=== PATIENT | female | born 1955 | race African-American/Black ===

== ENCOUNTER 2021-08-28 09:27 | Emergency (ER) | payer MEDICARE, SELFPAY ==
--- NOTE | ~2021-08-28 | XR_ITS ---
EXAMINATION: XR shoulder RT min 2V DATE: 08/28/2021 10:51 INDICATION: Right shoulder pain. TECHNIQUE: 4 views of right shoulder were obtained. COMPARISON: None. FINDINGS: Bone alignment is normal. No fracture. There is moderate osteoarthritis of glenohumeral cheryle nt. There is mild acromioclavicular joint osteoarthritis. IMPRESSION: 1. Polyarticular osteoarthritis. Reviewed, dictated and finalized at location A.
--- NOTE | ~2021-08-28 | US_ITS ---
EXAMINATION: US soft tissue UE RT DATE: 08/28/2021 10:51 INDICATION: Right upper arm mass. TECHNIQUE: Multiple grayscale and Doppler ultrasound images of the right upper arm were obtained. COMPARISON: Right shoulder radiographs 08/28/2021 FINDINGS: There is no abnormal mass in the patient's area of concern in right upper arm. IMPRESSION: 1. No abnormal mass in the patient's area of concern in right upper arm. Reviewed, dictated and finalized at location A.
[2021-08-28 09:43] VITALS: BP 153/88; PULSE 86; RESP 18; TEMP 36.6; O2SAT 100
--- NOTE | 2021-08-28 10:25 | ED.SKABFB ---
HPI - Skin/Abscess/Foreign Bdy General Chief complaint: Skin/Abscess/Foreign Body Stated complaint: arm pain Time Seen by Provider: 08/28/21 10:06 Source: patient Mode of arrival: ambulatory Limitations: no limitations History of Present Illness HPI narrative: This is a 65-year-old female that presents to the emergency department for right shoulder pain. Ongoing over the last month. No recent injuries or trauma. The pain is worse with movement and relieved with rest. She has been taking Tylenol with little relief. She also reports a mass on her right upper arm. This has been present for about a year now. She was supposed to follow-up with the surgeon, but missed her appointment. Denies fever, erythema, edema, numbness or weakness. Related Data Allergies Allergy/AdvReac Type Severity Reaction Status Date / Time codeine Allergy Mild FAINTING Verified 08/28/21 09:51 Review of Systems Review of Systems: CONSTITUTIONAL: Denies fever SKIN: Denies rash MUSCULOSKELETAL: Reports joint pain, and myalgia. NEUROLOGIC: Denies numbness, or weakness. All systems reviewed & are unremarkable except as noted in HPI and below PMFSH Past Medical History Medical History (Updated 08/28/21 @ 12:00 by Tamia Bermudez PA-C) History of depression History of hyperlipidemia History of hypertension Social History Social History (Updated 08/28/21 @ 10:27 by Tamia Bermudez PA-C) Substance use: never Exam Narrative: GENERAL: Well-appearing, well-nourished, and in no acute distress. HEAD: Normocephalic, atraumatic. EYES: EOMI. CHEST: Clear to auscultation. No respiratory distress. No wheezes rales or rhonchi HEART: Regular rate and rhythm. No murmur heard. Normal peripheral pulses. EXTREMITIES: Normal range of motion. No edema, erythema or warmth. 5cm soft tissue mass of the right upper arm that feels like a possible lipoma. Normal radial pulses. Normal sensation SKIN: Warm, dry, no rash. NEURO: No focal deficits. Alert and oriented x3. PSYCH: Normal mood and affect Course Vital Signs Vital signs: Vital Signs Temperature 97.8 F 08/28/21 09:43 Pulse Rate 86 08/28/21 09:43 Respiratory Rate 18 08/28/21 09:43 Blood Pressure 153/88 H 08/28/21 09:43 Pulse Oximetry 100 08/28/21 09:43 Temperature 97.8 F 08/28/21 09:43 Pulse Rate 86 08/28/21 09:43 Respiratory Rate 18 08/28/21 09:43 Blood Pressure 153/88 H 08/28/21 09:43 Pulse Oximetry 100 08/28/21 09:43 MDM - Skin/Abscess/Foreign Bdy MDM Narrative Medical decision making narrative: Patient presents to the emergency department for right shoulder pain ongoing over the last month. No recent injury or trauma. She is neurovascularly intact. No erythema, edema or warmth of the arm. Right shoulder x-ray shows polyarticular osteoarthritis. She also have a soft tissue mass which appears consistent with a lipoma. No concerning findings on ultrasound of the area. Patient was updated on case findings. Will be given general surgery for follow-up of soft tissue mass. Was also instructed to follow-up with orthopedics for her shoulder pain. She is stable and felt appropriate for further outpatient evaluation. She was given warnings to return to the ER Imaging Data Radiologist's impression: ITS Impressions Soft Tissue Ultrasound 08/28/21 10:51 IMPRESSION: 1. No abnormal mass in the patient's area of concern in right upper arm. Shoulder X-Ray 08/28/21 10:54 IMPRESSION: 1. Polyarticular osteoarthritis. Critical Care Time Critical Care Time Critical Care Time: No Discharge Plan Discharge Clinical Impression: Acute pain of right shoulder, Mass of soft tissue Patient Disposition: Home, Self-Care Condition: Stable Instructions: Osteoarthritis (ED), Shoulder Pain (ED), Lipoma (ED) Additional Instructions: Return to the emergency department if you experience fever, chest pain, shortness of breath, redness and swelli
[2021-08-28] MEDS: KETOROLAC (*BKC) 60 MG/2 ML VIAL IM (11:21)
[2021-08-28] MEDS: ACETAMINOPHEN 500 MG TABLET 1000 MG PO (11:22)
[2021-08-28 12:31] VITALS: BP 134/73; PULSE 78; RESP 16; O2SAT 98
== END 2021-08-28 12:34 | disposition home or self-care (01) ==
PROVIDERS: Emergency Provider Emergency Medicine
DX: M25.511 Pain in right shoulder (principal); M79.9 Soft tissue disorder, unspecified; E78.5 Hyperlipidemia, unspecified; I10 Essential (primary) hypertension; M19.011 Primary osteoarthritis, right shoulder
CPT/HCPCS: 73030; 76882; 96372; 99284; A9270; J1885

== ENCOUNTER 2024-02-23 14:08 | Emergency (ER) | payer OTHER, MEDICARE, SELFPAY ==
--- NOTE | ~2024-02-23 | XR_ITS ---
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 COMPARISON: None available. FINDINGS: Detail obscured by overlying bandage material. Normal mineralization. No fracture or disloc ation. No lytic or blastic lesion. Joint spaces and physes are maintained. No erosion or periosteal c hange. Laceration at the tip of the third digit, extending to bone. IMPRESSION: No acute osseous finding in the left third digit. Soft tissue injury appears to extend to bone, without definitive cortical disruption. Reviewed, dictated and finalized at location K. IMPRESSION: No acute osseous finding in the left third digit. Soft tissue injury appears to extend to bone, without definitive cortical disru ption.
[2024-02-23 14:22] VITALS: BP 165/73; PULSE 106; RESP 20; TEMP 36.7; O2SAT 100
[2024-02-23] MEDS: ACETAMINOPHEN 500 MG TABLET 1000 MG PO (16:38)
[2024-02-23] MEDS: KETOROLAC 30 MG/ML VIAL (*BKC) IM (16:39)
[2024-02-23] MEDS: TETANUS,DIPHTHERIA,AC PERTUSSIS ADULT (0.5 ML) BOOSTRIX IM (16:40)
[2024-02-23] MEDS: CEPHALEXIN 500 MG CAPSULE PO (16:41)
--- NOTE | 2024-02-23 16:57 | ED_ITS ---
HPI - Wound/Laceration General Chief Complaint: Wound/Laceration Stated Complaint: Laceration Left Finger Time Seen by Provider: 02/23/24 15:48 Source: patient Mode of arrival: ambulatory Limitations: no limitations History of Present Illness HPI narrative: Patient is a 68 y/o female who presents to the ED with c/o laceration to her left 3rd digit. 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 No other injuries. No numbness. Tetanus unknown. Related Data Allergies Allergy/AdvReac Type Severity Reaction Status Date / Time codeine Allergy Mild FAINTING Verified 08/28/21 09:51 Review of Systems Review of Systems: All systems reviewed & are unremarkable except as noted in HPI. All systems reviewed & are unremarkable except as noted in HPI and below PMFSH Past Medical History Medical History History of depression History of hyperlipidemia History of hypertension Social History Social History Substance use: never Exam Narrative: GENERAL: Appears older than stated age, thin, non-toxic, in no acute distress. HEAD: Normocephalic, atraumatic. RESPIRATORY: Airway patent, respirations nonlabored. Clear to auscultation bilaterally, no rales, rhonchi, wheezing. CARDIOVASCULAR: Regular rate and rhythm. Radial pulses 2+ MUSCULOSKELETAL: Moves all extremities. Full ROM of fingers. Skin avulsion to ulnar distal edge of L 3rd digit finger pad. No nail involvement. Minimal active bleeding. No obvious underlying bone or ligament injury. Sensation intact. SKIN: Warm, dry, normal color. NEURO: A&O X3. Speech clear. PSYCHIATRIC: Slightly manic speech, labile mood. Course Vital Signs Vital signs: Vital Signs Temperature 98.1 F 02/23/24 14:22 Pulse Rate 106 H 02/23/24 14:22 Respiratory Rate 20 02/23/24 14:22 Blood Pressure 165/73 H 02/23/24 14:22 Pulse Oximetry 100 02/23/24 14:22 Oxygen Delivery Room Air 02/23/24 14:22 Temperature 98.1 F 02/23/24 14:22 Pulse Rate 94 02/23/24 17:59 Respiratory Rate 18 02/23/24 17:59 Blood Pressure 156/86 H 02/23/24 17:59 Pulse Oximetry 98 02/23/24 17:59 Oxygen Delivery Room Air 02/23/24 14:22 MDM - Wound/Laceration MDM Narrative Medical decision making narrative: Exam consistent with skin avulsion. I do not appreciate any exposed bone on exam. Neurovascularly intact. Avulsion irrigated and repaired with surgicell. Dressing placed. Tetanus updated. Patient given pain medication. Given possibility of extension to bone on x-ray imaging, will place patient on short course of antibiotics. Patient was given wound care instructions and reasons to return. She is in agreement with plan. Discharged in stable condition. Medical Records Attestation: I reviewed the patient's medical records. Imaging Data Attestation: I personally reviewed and interpreted this imaging study as follows: Radiologist's impression: ITS Impressions Finger X-Ray 02/23/24 14:40 IMPRESSION: No acute osseous finding in the left third digit. Soft tissue injury appears to extend to bone, without definitive cortical disruption. Discharge Plan Discharge Clinical Impression: Avulsion of skin of middle finger Qualifiers: Encounter type: initial encounter Qualified Code(s): S61.208A - Unspecified open wound of other finger without damage to nail, initial encounter Patient Disposition: Home, Self-Care Condition: Stable Instructions: Antibiotic Form, Skin Avulsion (ED), Skin Adhesive Care (ED) Additional Instructions: Take antibiotics as prescribed. Allow Surgicell mesh dressing (directly covering the wound) to fall off on its own over the next few days. Do not try to remove this yourself as this will cause recurrent bleeding. You may remove/change the outer gauze and dressing. Keep finger bandaged. Continue Tylenol and Ibuprofen for pain, ice to finger. Prescriptions: New cephalexin 500 mg capsule 500 mg PO Q6H 7 Days Qty: 28 0RF No Action ketorolac 10 mg tablet 10 mg PO Q6H PRN (Reason: pain) 4 Days Qty: 14 0RF Follow-up/Referrals: PHYSICIAN,[facility] [Primary Care Provider] - Stand Alone Forms: Work/School Release IP Time of Disposition: 17:02
[2024-02-23 17:59] VITALS: BP 156/86; PULSE 94; RESP 18; O2SAT 98
== END 2024-02-23 18:00 | disposition home or self-care (01) ==
PROVIDERS: Emergency Provider Physician Assistant
DX: S61.213A Laceration without foreign body of left middle finger without damage to nail, initial encounter (principal); Z23 Encounter for immunization; I10 Essential (primary) hypertension; E78.5 Hyperlipidemia, unspecified; W31.82XA Contact with other commercial machinery, initial encounter; Y93.G1 Activity, food preparation and clean up
CPT/HCPCS: 73140; 90471; 90715; 96372; 99283; A9270; J1885

== ENCOUNTER 2024-03-03 13:34 | Outpatient (CLI) | payer MEDICARE, SELFPAY ==
--- NOTE | ~2024-03-03 | XR_ITS ---
XR finger 3rd LT min 2V Ordering provider: Irma Spears APRN History: . LACERATION OF FINGER 3RD DIGIT NAILBED CHECK HEALING . Comparison: February 23, 2024 FINDINGS: BONES: No acute fracture or dislocation. Small bony fragment at the base of the proximal phalanx of t he third finger is noted unchanged from previous examination JOINT SPACES: Normal. SOFT TISSUES: Normal. IMPRESSION: No acute osseous abnormality. Reviewed, dictated and finalized at location A.
== END 2024-03-03 13:35 | disposition home or self-care (01) ==
LOC: ANHIMG 13:43
PROVIDERS: PCP Nurse Practitioner Family; Visit Provider Nurse Practitioner Family
DX: S61.208A Unspecified open wound of other finger without damage to nail, initial encounter (principal); X58.XXXA Exposure to other specified factors, initial encounter
CPT/HCPCS: 73140